=== PATIENT | male | born 1975 | race Hispanic/Latino ===

== ENCOUNTER 2021-11-23 01:39 | Emergency (ER) | payer OTHER ==
[2021-11-23] MEDS ORDERED: ASPIRIN 325 MG TAB PO ONE (01:50)
[2021-11-23] MEDS ORDERED: SODIUM CHLORIDE 0.9% 1000 ML 1,000 ML IV ONE (01:50)
[2021-11-23] MEDS ORDERED: ONDANSETRON 4 MG/2 ML INJ IV ONE (01:52)
[2021-11-23] MEDS ORDERED: MORPHINE 4 MG/1 ML INJ IV ONE (01:52)
[2021-11-23] MEDS: NITROGLYCERIN 2% OINT 1 GM TP ONE ×2 (02:01→02:05)
--- NOTE | 2021-11-23 02:21 | XRay Report ---
CHEST 1 VIEW 11/23/2021 2:03 AM INDICATION / CLINICAL INFORMATION: Chest Pain. COMPARISON: None available. FINDINGS: SUPPORT DEVICES: None. HEART / MEDIASTINUM: The heart size and pulmonary vasculature are normal. The aorta is normal in andrew mike. LUNGS / PLEURA: No significant pulmonary or pleural abnormality. No pneumothorax. ADDITIONAL FINDINGS: No significant additional findings. IMPRESSION: No acute findings. Signer Name: Gregg Saavedra MD Signed: 11/23/2021 2:16 AM Workstation Name: [id number]
[2021-11-23] MEDS ORDERED: ASPIRIN EC 81 MG TAB PO ONE (02:26)
[2021-11-23] MEDS ORDERED: ASPIRIN 81 MG TAB CHEW PO ONE (02:27)
[2021-11-23 02:30] LABS: Basophils # (Auto) 0.1 K/mm3 (0.0-0.1); Basophils % (Auto) 0.8 % (0.0-1.8); Eosinophils # (Auto) 0.4 K/mm3 (0.0-0.4); Eosinophils % (Auto) 3.4 % (0.0-4.3); Hematocrit 42.8 % (35.5-45.6); Hemoglobin 14.2 gm/dl (11.8-15.2); Lymphocytes # (Auto) 2.5 K/mm3 (1.2-5.4); Lymphocytes % (Auto) 24.1 % (13.4-35.0); Mean Corpuscular HGB Conc 33 % (32-34); Mean Corpuscular Volume 89 fl (84-94); Monocytes # (Auto) 0.8 K/mm3 (0.0-0.8); Monocytes % (Auto) 7.2 % (0.0-7.3); Platelet Count 265 K/mm3 (140-440); Red Cell Distribution Width 13.5 % (13.2-15.2)
[2021-11-23 02:45] LABS: INR 0.85 (0.87-1.13)
[2021-11-23 02:56] LABS: Alanine Aminotransferase 20 units/L (7-56); BUN/Creatinine Ratio 16; Blood Urea Nitrogen 19 mg/dL (9-20); Calcium 8.9 mg/dL (8.4-10.2); Hemolysis Index 21
[2021-11-23 04:12] LABS: Amphetamine Screen,Urine Negative; Benzodiazepines Screen,Urine Negative; Cannabinoid Screen,Urine Negative; Cocaine Screen,Urine Negative; Methadone Screen,Urine Negative; Opiate Screen,Urine Negative
[2021-11-23 04:14] LABS: RBC,Urine < 1.0 /HPF (0.0-6.0)
[2021-11-23 04:20] LABS: Color,Urine Yellow (Yellow)
[2021-11-23 04:21] LABS: Bilirubin,Urine NEG (Negative); Blood,Urine NE (Negative); Protein,Urine <15 mg/dL mg/dL (Negative); Urobilinogen,Urine < 2.0 mg/dL (<2.0); WBC,Urine < 1.0 /HPF (0.0-6.0)
--- NOTE | 2021-11-23 04:26 | Cat Scan Report ---
CT CHEST, ABDOMEN AND PELVIS WITH INTRAVENOUS CONTRAST INDICATION / CLINICAL INFORMATION: Right chest and abdominal pain. TECHNIQUE: 100 cc [address] scans at this location are performed using CT dose reduction f or ALARA by means of automated exposure control. COMPARISON: None available. FINDINGS: CHEST: There is moderate patchy subsegmental parenchymal disease in both lower lung zones with air br onchograms. The remainder of both lungs are clear. There is no evidence of mediastinal or hilar adeno dejan. No pleural or pericardial effusion is seen. The tracheobronchial tree is normal. The heart size is normal. There are mild atherosclerotic calcifications involving the thoracic aorta without aneurysm or dissection. No coronary artery calcification is present. ABDOMEN: The liver measures 21.6 cm in length and demonstrates mild diffuse decreased density compare d to the spleen without focal lesion. The spleen, gallbladder, bile ducts, pancreas, adrenal glands a nd left kidney demonstrate no significant abnormality. There is a subcentimeter simple cyst in the up per pole of the right kidney. A moderate amount stool is present in the colon. There is no evidence o f bowel obstruction, wall thickening or free air. There are mild atherosclerotic calcifications invol ving the abdominal aorta without aneurysm. No adenopathy is present. PELVIS: The distal ureters, urinary bladder, prostate gland and seminal vesicles are normal. A normal appendix is present and there is no evidence of diverticulitis. No abnormal mass or fluid collection is seen. I do not identify a hernia area BONES: There is mild spondylosis without acute osseous abnormality. IMPRESSION: 1. Moderate subsegmental atelectasis or pneumonia in both lower lung zones. 2. No acute intra-abdominal disease is identified 3. Mild hepatomegaly with evidence of mild diffuse fatty infiltration. Signer Name: Gregg Saavedra MD Signed: 11/23/2021 4:22 AM Workstation Name: [id number]
[2021-11-23] MEDS ORDERED: cefTRIAXone/NS 1 GM/50 ML 1 GM/50 ML BAG IV ONE (05:19)
--- NOTE | 2021-11-23 05:28 | Emergency Department Report ---
ED Chest Pain HPI - General Chief Complaint: Chest Pain Stated Complaint: POSS STROKE Time Seen by Provider: 11/23/21 01:44 Source: patient Mode of arrival: Ambulatory Limitations: No Limitations - History of Present Illness Initial Comments: Pt came in from work and suddenly have right sided chest pain 10/10, sharp and heavy, and also complaining of right arm pain pt is 46 years old with DM and HTN , had chest pain while jigar work today , right side sharp pain going to his arm , no SOB or fever , pain is down now to 6 MD Complaint: chest pain Onset: during rest Pain Location: right chest Pain Radiation: RUE Severity scale (0 -10): 3 Quality: sharp Consistency: constant Improves With: nothing Worsens With: nothing - Related Data Allergies Allergy/AdvReac Type Severity Reaction Status Date / Time No Known Allergies Allergy Verified 11/23/21 01:51 Heart Score - HEART Score History: Slightly suspicious EKG: Normal Age: 45-65 Risk factors: 1-2 risk factors Troponin: < normal limit HEART Score: 2 - EKG Read Time Time EKG Completed: : EKG Read Time: :26 - Critical Actions Critical Actions: 0-3 pts:0.9-1.7%risk of adverse cardiac event.Candidate for discharge ED Review of Systems ROS: Stated complaint: POSS STROKE Other details as noted in HPI Constitutional: denies: chills, fever Eyes: denies: eye pain, eye discharge, vision change ENT: denies: ear pain, throat pain Respiratory: denies: cough, shortness of breath, wheezing Cardiovascular: denies: chest pain, palpitations Endocrine: no symptoms reported Gastrointestinal: denies: abdominal pain, nausea, diarrhea Genitourinary: denies: urgency, dysuria Musculoskeletal: denies: back pain, joint swelling, arthralgia Skin: denies: rash, lesions Neurological: denies: headache, weakness, paresthesias Psychiatric: denies: anxiety, depression Hematological/Lymphatic: denies: easy bleeding, easy bruising ED Past Medical Hx - Past Medical History Previous Medical History?: Yes Hx Hypertension: Yes Hx Diabetes: Yes - Surgical History Past Surgical History?: No ED Physical Exam - General Limitations: No Limitations General appearance: alert, in no apparent distress - Head Head exam: Present: atraumatic, normocephalic - Eye Eye exam: Present: normal appearance - ENT ENT exam: Present: mucous membranes moist - Neck Neck exam: Present: normal inspection - Respiratory Respiratory exam: Present: normal lung sounds bilaterally. Absent: respiratory distress - Cardiovascular Cardiovascular Exam: Present: regular rate, normal rhythm. Absent: systolic murmur, diastolic murmur, rubs, gallop - GI/Abdominal GI/Abdominal exam: Present: soft, normal bowel sounds - Rectal Rectal exam: Present: deferred - Extremities Exam Extremities exam: Present: normal inspection - Back Exam Back exam: Present: normal inspection - Neurological Exam Neurological exam: Present: alert, oriented X3 - Psychiatric Psychiatric exam: Present: normal affect, normal mood - Skin Skin exam: Present: warm, dry, intact, normal color. Absent: rash ED Course Vital Signs 11/23/21 11/23/21 11/23/21 01:39 01:45 02:01 Temperature 97.4 F L Pulse Rate 91 H 87 87 Respiratory 25 H 15 22 Rate Blood Pressure 124/80 120/74 119/75 Blood Pressure 124/80 [Left] O2 Sat by Pulse 95 96 93 Oximetry 11/23/21 11/23/21 11/23/21 02:15 02:31 02:45 Temperature Pulse Rate 88 84 88 Respiratory 17 16 12 Rate Blood Pressure 120/80 113/72 113/68 Blood Pressure [Left] O2 Sat by Pulse 91 98 98 Oximetry 11/23/21 11/23/21 11/23/21 03:01 03:15 03:31 Temperature Pulse Rate 84 83 82 Respiratory 12 20 13 Rate Blood Pressure 113/62 124/70 116/77 Blood Pressure [Left] O2 Sat by Pulse 100 99 99 Oximetry 11/23/21 04:09 Temperature Pulse Rate 78 Respiratory 18 Rate Blood Pressure Blood Pressure [Left] O2 Sat by Pulse 100 Oximetry MATTHEW score - Matthew Score Age > 65: (0) No Aspirin use within the Past 7 Days: (1) Yes 3 or more CAD Risk Factors: (0) No 2 or more Angina events in past 24 hrs: (1) Yes Known CAD with more than 50% Stenosis: (0) No Elevated Cardiac Markers: (0) No ST Deviation Greater than 0.5mm: (0) No MATTHEW Score: 2 ED Medical Decision Making - Lab Data Result diagrams: 11/23/21 01:59 11/23/21 01:59 - EKG Data -: EKG Interpreted by Me EKG shows normal: sinus rhythm Rate: normal - EKG Data Interpretation: normal EKG, other (pvcs) - Radiology Data Radiology results: report reviewed, image reviewed - Medical Decision Making work up unremarkable , trop negative times 2 , CT showed possible pneumonia , abx given offered admission but pt refused undertands susie, his on wheelchair and has to take vare of her , will come back if not better Critical care attestation.: If time is entered above; I have spent that time in minutes in the direct care of this critically ill patient, excluding procedure time. ED Disposition Clinical Impression: Chest pain, Pneumonia Disposition: HOME / SELF CARE / HOMELESS Is pt being admited?: No Does the pt Need Aspirin: No Condition: Stable Instructions: Nonspecific Chest Pain, Adult, Bacterial Pneumonia (ED), Nonspecific Chest Pain, Adult, [id number], Community-Acquired Pneumonia, Adult Additional Instructions: return to ER if pain recurs Referrals: PRIMARY CARE, [Primary Care Provider] - 3-5 Days
[2021-11-23 05:58] VITALS: BP 128/78
--- NOTE | 2021-11-23 11:26 | Electrocardiograph Report ---
[facility] Test Date: 2021-11-23 Test Time: 01:26:25 Pat Name: TEGAN CERRATO Department: Room: Gender: M Personal Companion: : 1975 Requested By: NADIA FELIX Order Number: [id number] Reading MD: Rey Hernandez Measurements Intervals [place] Rate: 91 P: 49 GA: 134 QRS: 3 QRSD: 91 T: 8 QT: 358 QTc: 441 Interpretive Statements Sinus rhythm Ventricular premature complex No previous ECG available for comparison Electronically Signed On 11-23-2021 11:26:21 EDT by Rey Hernandez
== END 2021-11-23 06:30 | disposition home or self-care (01) ==
LOC: ED 01:39
DX: J18.9 Pneumonia, unspecified organism (principal); R07.89 Other chest pain; R10.9 Unspecified abdominal pain; R51.9 Headache, unspecified; I10 Essential (primary) hypertension; E11.9 Type 2 diabetes mellitus without complications; Z79.899 Other long term (current) drug therapy
CPT/HCPCS: 36415; 71045; 71260; 74177; 80053; 80307; 81001; 83690; 83880; 84484; 85025; 85610; 93005; 96361; 96365; 96375; 99284; J0696; J2270; J2405; J7030; Q9967; 80320; Q0162; G0480